=== PATIENT | female | born 1940 | race Caucasian/White ===

== ENCOUNTER 2021-12-09 13:20 | Emergency (ER) | payer MEDICARE, OTHER ==
[2021-12-09 14:39] LABS: CORONAVIRUS 2019 SARS-COV-2 NEGATIVE (NEGATIVE); INFLUENZA A NAA NEGATIVE (NEGATIVE)
[2021-12-09] MEDS ORDERED: ZPAK PO (16:19)
[2021-12-09] MEDS ORDERED: SINGULAIR10 MG PO (16:19)
[2021-12-09] MEDS ORDERED: ZYRTEC10 MG PO (16:19)
== END 2021-12-09 16:30 | disposition home or self-care (01) ==
LOC: FER 13:20
PROVIDERS: Internal Medicine
DX: J18.9 Pneumonia, unspecified organism (principal); J30.2 Other seasonal allergic rhinitis; E03.9 Hypothyroidism, unspecified; K21.9 Gastro-esophageal reflux disease without esophagitis; Z20.822 Contact with and (suspected) exposure to COVID-19; Z88.6 Allergy status to analgesic agent; Z90.49 Acquired absence of other specified parts of digestive tract; Z90.09 Acquired absence of other part of head and neck; Z79.899 Other long term (current) drug therapy
CPT/HCPCS: 71045; U0002